=== PATIENT | male | born 1945 | race Caucasian/White ===

== ENCOUNTER → 2016-10-20 10:36 | Outpatient (CLI) | payer MEDICARE, BC ==
[~2016-10-20] VITALS: Ht 170.2 cm; Wt 77.3 kg
--- NOTE | ~2016-10-20 | HEMODYNAMI ---
PATIENT:BETI WEATHERS MEDICAL RECORD: [id number] : 49 LOCATION:DCHARISSE ADMISSION DATE: 10/20/16 Generatedon:10/20/201613:43 Patient name: BETI WEATHERS Patient #: [id number] SSN: [id number] : 1945 Date of study: 10/20/2016 Page: Of Hemodynamic Procedure Report Patient Data Patient Demographics Procedure consent was obtained First Name: BETI Gender: Male Last Name: JASIEL : 1945 Middle Initial: F Age: 71 year(s) Patient #: [id number] Race: SSN: [id number] Additional ID: [id number] Contact details Address: [address] [place] [address] State: [place] City: [place] Zip code: [address] Admission Admission Data Admission Date: 10/20/2016 Admission Time: 10:36 Arrival Date: 10/20/2016 Arrival Time: 13:00 Admit Source: Other Insurance Payor: Medicare Height (in.): 67 BSA: 1.94 (m2) Height (cm.): 170.18 BMI: 28.5 (kg/m2) Weight (lbs.): 182 Weight (kg.): 82.55 Lab Results Lab Result Date: 10/20/2016 Lab Result Time: 0:00 Biochemistry Name Units Result Min Max BUN mg/dl 13 --(--*-)-- 7 18 Creatinine mg/dl 1.1 --(--*-)-- 0.6 1.3 CBC Name Units Result Min Max Hemoglobin g/dl 16.5 --(--*-)-- 13.5 17.5 Procedure Procedure Types Cath Procedure Diagnostic Procedure Cardioversion Procedure Description Procedure Date Procedure Date: 10/20/2016 Procedure Start Time: 13:21 Procedure End Time: 13:24 Procedure Staff Name Function Robert Sheffield MD Performing Physician Brandi Mercado RT Scrub Maki Ford RN Nurse Iglesia Gramajo RT Pre Owned Sales Manager Vamshi Healy RT Monitor Procedure Data Cath Procedure Fluoroscopy Diagnostic fluoroscopy Total fluoroscopy Time: 0 time: 0 min min Diagnostic fluoroscopy Total fluoroscopy dose: 0 dose: 0 mGy mGy Contrast Material Contrast Material Type Amount (ml) Isovue 370 0 Estimated blood loss: 0 ml Procedure Complications No complications Procedure Medications Medication Administration Route Dosage Oxygen NC 2 l/min Refer to Anesthesia Notes for Sedation Medications Hemodynamics Rest BSA: 1.94 (m2) HGB: 16.5 (g/dl) O2 Consumption: Estimated: 234.76 (ml/min) O2 Consumption indexed: Estimated:121.01 (ml/min/m) Heart Rate: 83 (bpm) Snapshots Pre Cath Intra NCS Post Cath Vital Signs Time Heart Resp SPO2 NIBP (mmHg) Rhythm Pain Sedation Rate (ipm) (%) Status Level (bpm) 13:10:46 81 19 96 141/100(115) A-Fib 0 (11) 10(A) , No pain 13:14:58 93 16 96 134/101(109) A-Fib 0 (11) 10(A) , No pain 13:19:06 77 17 96 134/104(114) A-Fib 0 (11) 9(A) , No pain 13:22:25 62 19 98 102/70(88) NSR 0 (11) 6(A) , No pain 13:24:58 72 20 98 103/72(85) NSR 0 (11) 7(A) , No pain 13:29:17 71 16 97 101/76(87) NSR 0 (11) 7(A) , No pain 13:40:00 62 15 98 104/70(87) NSR 0 (11) 9(A) , No pain Medications Time Medication Route Dose Verified Delivered Reason Notes Effectiven ess by by 13:10:07 Oxygen NC 2 Robert Maki Per l/min Yohannes Ford RN physician 13:10:12 Refer to Robert Yooic for Anesthesia Yohannes Sheffield MD sedation Notes for Sedation Medications Procedure Log Time Note 12:48:24 Diagnostic Cath Status : Elective 12:50:45 Iglesia Gramajo RT(R) sent for patient. Start room use. 12:50:47 Time tracking: Regular hours 12:50:51 Plan of Care:Hemodynamics will remain stable., Cardiac rhythm will remain stable., Comfort level will be maintained., Respiratory function will remain adequate., Patient/ family verbilizes understanding of procedure., Procedure tolerated without complication., Recovers from procedure without complications.. 12:51:18 Informed consent obtained and on chart 12:53:38 Admit Source: Other 12:53:42 Patient Height : 170.18 cm 12:53:52 Patient Weight : 82.55 kg 12:53:52 Insurance Payor : Medicare 12:53:58 Arrival Date: 10/20/2016 1:00:00 PM 12:55:17 Quick Combo opened to sterile field. 13:03:22 Patient received from Outpatients to CCL 1 Alert and oriented. Tansferred to table in Supine position. 13:03:24 Warm blankets applied, and trevor hugger turned on for patient comfort. 13:03:25 Correct patient and procedure confirmed by team. 13:03:26 ECG and BP/O2 sat monitors applied to patient. 13:09:40 Vital chart was started 13:09:41 Baseline sample Acquired. 13:09:47 Rhythm: atrial fibrillation 13:09:49 Full Disclosure recording started 13:10:07 Oxygen 2 l/min NC was given by Maki Ford RN; Per physician; 13:10:12 Refer to Anesthesia Notes for Sedation Medications was given by Robert Sheffield MD; for sedation; 13:10:31 H&P Date Dictated: 09/30/2017 Within 30 days and on chart., H&P Addendum completed by physician on day of procedure. (MUST COMPLETE FOR ALL OUTPATIENTS). 13:11:09 Pre-procedure instructions explained to patient. 13:11:09 Pre-op teaching completed and patient verbalized understanding. 13:11:11 Family in waiting room. 13:11:12 Patient NPO since Midnight. 13:11:22 Is the patient allergic to Iodine/contrast media? No. 13:11:23 Was the patient premedicated? No 13:11:23 Is patient on blood thinner?Yes 13:11:27 ACC The patient was administered the following blood thiners within the last 24 hours: Xarelto 13:12:16 Patient diabetic? No. 13:12:20 Previous problem with sedation/anesthesia? No ? 13:12:23 Snore? Yes 13:12:30 Sleep apnea? No 13:13:01 Deviated septum? No 13:13:02 Opens mouth fully? Yes 13:13:03 Sticks out tongue? Yes 13:13:05 Airway obstruction? No ? 13:13:58 Dentures? No ? 13:14:06 Pre procedure: right dorsailis pedis pulse 1+ Palpable, but thready & weak; easily obliterated 13:14:09 Patient pain scale 0/10 ?. 13:15:01 IV patent on arrival in left forearm with 0.9% NaCl at O. 13:15:23 Lab Result : Creatinine 1.1 mg/dl 13:15:23 Lab Result : BUN 13 mg/dl 13:15:23 Lab Result : Hemoglobin 16.5 g/dl 13:15:36 Lab results completed and on chart. 13:15:44 Alarms reviewed by R. N. 13:15:46 Sharps counted by scrub and verified by R.N. 13:15:58 Physician paged 13:17:24 Physician arrived 13:17:25 --------ALL STOP TIME OUT------ 13:17:25 Final Timeout: patient, procedure, and site verified with staff and physician. All members of the team are in agreement. 13:17:30 Physical assessment completed. ASA score P 2 - A patient with mild systemic disease as per Robert Sheffield MD. 13:17:36 Sedation plan: TIVA Propofol 13:17:46 kady medina present and monitoring patient for TIVA. 13:17:56 Quick combo pads placed on patients chest and back. 13:18:41 Defibrillator synced and charged to 200 Joules. 13:21:21 Procedure started. 13:21:33 Shock delivered. 13:21:44 Patient cardioverted to sinus rhythm . 13:22:04 Procedure ended.(Physican Out) 13:22:17 Fluoroscopy time 00.00 minutes. 13:22:20 Fluoroscopy dose: 0 mGy 13:22:20 Flurop Dose total: 0 13:22:26 Contrast amount:Isovue 370 0ml. 13:22:28 Sharps counted by scrub and verified by R.N. 13:22:30 Insertion/operative site no bleeding no hematoma. 13:22:43 Post procedure rhythm: sinus rhythm 13:22:46 Estimated blood loss: 0 ml 13:22:47 Post procedure instruction explained to patient.Patient verbalizes understanding. 13:22:48 Patient needs reinforcement of post procedure teaching. 13:22:53 Procedure and supply charges have been captured, reviewed, submitted and are correct. 13:22:57 Procedure Complication : No complications 13:24:06 Vital chart was stopped 13:24:06 See physician's report for complete and final results. 13:24:12 Report given to Post Procedure Room. 13:24:15 Patient transfered to Post Procedure Room with Stretcher. 13:24:16 Procedure ended. 13:24:16 Full Disclosure recording stopped 13:24:22 End room use (Document Last) Device Usage Item Manufacture Quantity Catalog Hospital Part Current Minimal Lot# / Name Number Charge Number Stock Stock Hugh de# Code Augment [id number] Combo Signature Audit [place] Stage Time Signature Unsigned Intra-Procedure 10/20/2016 Brandi Mercado 1:43:32 PM RT(R) Signatures Monitor : Vamshi Healy RT Signature : Date : Time : [address] [address]
[~2016-10-20 10:36] MED LIST: BETAPACE 80 MG80 MG PO; BUPROPION HCL150 M1 PO; COZAAR50 MG PO; LIPITOR40 MG PO; OMEPRAZOLE40 MG PO; SYNTHROID88 MCG PO; VITAMIN D5000 UNIT PO; XARELTO20 MG PO; ZOVIRAX400 MG PO
[2016-10-20 11:39] LABS: BASOPHILS 0.4 % (0.0-2.0); EOSINOPHILS 3.4 % (0-7); HEMATOCRIT 47.6 % (42.0-54.0); HEMOGLOBIN 16.5 g/dL (13.5-17.5); IMMATURE GRANULOCYTES 0.4 % (0-5); LYMPHOCYTES 22.3 % (15-50); MCH 31.9 pg (26.0-34.0); MCHC 34.7 g/dL (31.0-37.0); MCV 91.9 fL (80.0-100.0); MEAN PLATELET VOLUME 9.6 fL (7.4-10.4); MONOCYTES 8.2 % (2-11); NEUTROPHILS 65.3 % (40-80); PLATELET COUNT 262 10x3/uL (130-400); RBC 5.18 10x6/uL (4.20-6.10); RDW 13.4 % (11.5-14.5); WBC 11.2 10x3/uL (4.8-10.8)
[2016-10-20 11:48] LABS: ANION GAP 11.7 mmol/L (8-16); CALCIUM 9.5 mg/dL (8.5-10.1); CARBON DIOXIDE 30.1 mmol/L (21.0-32.0); CREATININE - SERUM 1.1 mg/dL (0.6-1.3); POTASSIUM - SERUM 4.8 mmol/L (3.5-5.1)
[2016-10-20 12:01] VITALS: BP 139/95; Ht 170.2 cm; Wt 77.3 kg
[2016-10-20 12:47] LABS: INR 2.22 (0.85-1.17); PROTIME 24.7 SECONDS (11.6-15.0)
--- NOTE | 2016-10-20 14:00 | NUR ---
1400 NO DISTRESS NOTED. VSS WITH HR SR 70 CHEST PAIN IS DENIED. WILL MONITOR 1430 CHEST PAIN DENIED WITH NO CHANGE IN RHYTHM. REMAINS SINUS AT 69 REPOSITIONED TO SITTING WITH HOB UP 45 DEGREES FOR SANDWICH AND SODA
--- NOTE | 2016-10-20 14:54 | NUR ---
SITTING WITH HOB UP 45 DEGREES TALKING TO AT SIDE VSS WITH NO CHANGE IN ASSESSMENT WILL MONITOR
--- NOTE | 2016-10-20 15:02 | NUR ---
PIV REMOVED FROM R/ARM WITH DRESSING APPLIED VSS WITH CHEST PAIN DENIED PATIENT UP TO GET DRESSED FOR DISCHARGE HOME WILL MONITOR
--- NOTE | 2016-10-20 15:07 | NUR ---
VERBAL AND WRITTEN DISCHARGE ORDERS GONE OVER WITH PATIENT AND . BOTH VERBALIZE UNDERSTANDING OF INSTRUCTIONS. LEFT VIA WC TO [place] FOR TO DRIVE HOME CHEST PAIN IS DENIED WITH HR NSR RATE OF 70
--- NOTE | 2016-11-03 15:45 | OP ---
PATIENT NAME: BETI WEATHERS MEDICAL RECORD: [id number] :49 LOCATION:D.CAT ADMISSION DATE: SURGEON: MARIAAN ALCARAZ M.D. DATE OF OPERATION: 10/20/2016 Cardioversion REFERRING PHYSICIAN: Dr. Nikolas Nicole. PROCEDURES PERFORMED: Cardioversion. INDICATION: This 71-year-old gentleman who presents with persistent atrial fibrillation. DESCRIPTION: The patient was brought to the cath lab tech. It was confirmed he is in atrial fibrillation. He has been anticoagulated. He received sedation in the form of propofol. Once the patient was adequately sedated, he received 1 discharge of 200 joules. This resulted in methodist of sinus rhythm. He tolerated the procedure well without any complication. IMPRESSION: Successful cardioversion with methodist of sinus rhythm. TRANSINT:[id number] Voice Confirmation ID: [id number] DOCUMENT ID: [id number] MARIANA ALCARAZ M.D. at 1545 CC: [id number] DICTATION DATE: 10/20/16 1325 TABLE HAND: 10/20/16 1401 DEP CLI 10/20/[address] [address]
== END | disposition home or self-care (01) ==
LOC: D.CATH 09:00
PROVIDERS: Internal Medicine Cardiovascular Disease
DX: I48.1 Persistent atrial fibrillation (principal)

== ENCOUNTER → 2018-03-22 07:27 | Outpatient (CLI) | payer MEDICARE, BC ==
[2016-10-20 12:01] VITALS: BMI 26.7
== END | disposition home or self-care (01) ==
LOC: D.US 07:27
DX: R10.9 Unspecified abdominal pain (principal)

== ENCOUNTER → 2019-01-12 10:17 | Outpatient (CLI) | payer MEDICARE, BC ==
[2016-10-20 12:01] VITALS: BMI 26.7
== END | disposition home or self-care (01) ==
LOC: D.HCCARDIO 10:17
PROVIDERS: ATTEND Internal Medicine Cardiovascular Disease
DX: I34.0 Nonrheumatic mitral (valve) insufficiency (principal)

== ENCOUNTER → 2020-01-17 11:30 | Outpatient (CLI) | payer MEDICARE, BC ==
[2016-10-20 12:01] VITALS: BMI 26.7
== END | disposition home or self-care (01) ==
LOC: D.HCCECHO 11:30
PROVIDERS: ATTEND Internal Medicine Cardiovascular Disease
DX: I10 Essential (primary) hypertension (principal)

== ENCOUNTER 2020-03-14 11:42 | Outpatient (CLI) | payer MEDICARE, BC ==
[~2020-03-14] VITALS: Ht 170.2 cm; Wt 79.9 kg
--- NOTE | ~2020-03-14 | HEMODYNAMI ---
PATIENT:BETI WEATHERS MEDICAL RECORD: [id number] : 49 LOCATION:VI ADMISSION DATE: 03/14/20 Generatedon:03/14/202014:05 Patient name: BETI WEATHERS Patient #: [id number] SSN: [id number] : 1945 Date of study: 03/14/2020 Page: Of Hemodynamic Procedure Report Patient Data Patient Demographics Procedure consent was obtained First Name: BETI Gender: Male Last Name: JASIEL : 1945 Middle Initial: F Age: 74 year(s) Patient #: [id number] Race: SSN: [id number] Additional ID: [id number] Contact details Address: [address] [place] [address] State: [place] City: [place] Zip code: [address] Past Medical History Allergies: No known allergies Admission Admission Data Admission Date: 03/14/2020 Admission Time: 11:42 Height (in.): 66.93 BSA: 1.92 (m2) Height (cm.): 170 BMI: 27.68 (kg/m2) Weight (lbs.): 176.37 Weight (kg.): 80 Lab Results Lab Result Date: 03/14/2020 Lab Result Time: 0:00 Biochemistry Name Units Result Min Max BUN mg/dl 19 --(----)*- 7 18 Creatinine mg/dl 1.3 --(---*)-- 0.6 1.3 CBC Name Units Result Min Max Hematocrit % 49.9 --(--*-)-- 42 54 Hemoglobin g/dl 17.3 --(---*)-- 13.5 17.5 Procedure Procedure Types Cath Procedure Diagnostic Procedure Cardioversion External Procedure Description Procedure Date Procedure Date: 03/14/2020 Procedure Start Time: 13:38 Procedure End Time: 14:01 Procedure Staff Name Function Robert Sheffield MD Performing Physician Nichole Franco RT Monitor Ed Tanner RN Nurse Celso Phillips MD Additional personnel Procedure Data Cath Procedure Fluoroscopy Diagnostic fluoroscopy Total fluoroscopy Time: 0 time: 0 min min Diagnostic fluoroscopy Total fluoroscopy dose: 0 dose: 0 mGy mGy Estimated blood loss: 5 ml Procedure Complications No complications Hemodynamics Rest BSA: 1.92 (m2) HGB: 17.3 (g/dl) O2 Consumption: Estimated: 230.68 (ml/min) O2 Consumption indexed: Estimated:120.15 (ml/min/m) Heart Rate: 83 (bpm) Snapshots Pre Cath Intra NCS Post Cath Vital Signs Time Heart Resp SPO2 etCO2 NIBP (mmHg) Rhythm Pain Sedation Rate (ipm) (%) (mmHg) Status Level (bpm) 13:22:01 81 19 95 0 139/93(109) NSR 0 (11) 10(A) , No pain 13:26:09 89 17 96 0 127/90(99) NSR 0 (11) 10(A) , No pain 13:30:15 86 17 95 0 127/84(123) NSR 0 (11) 10(A) , No pain 13:34:17 80 19 96 0 92/68(79) NSR 0 (11) 10(A) , No pain 13:38:51 78 17 98 0 119/92(107) NSR 0 (11) 10(A) , No pain 13:42:57 69 18 96 0 125/82(91) NSR 0 (11) 10(A) , No pain 13:47:09 66 17 97 0 101/67(74) NSR 0 (11) 10(A) , No pain 13:51:13 66 16 97 0 105/67(76) NSR 0 (11) 10(A) , No pain 13:55:14 62 16 98 0 99/74(86) NSR 0 (11) 10(A) , No pain 13:59:18 64 16 98 0 105/65(84) NSR 0 (11) 10(A) , No pain Procedure Log Time Note 12:51:44 Procedure Status Cardioversion. 12:51:50 Plan of Care:Hemodynamics will remain stable., Cardiac rhythm will remain stable., Comfort level will be maintained., Respiratory function will remain adequate., Patient/ family verbilizes understanding of procedure., Procedure tolerated without complication., Recovers from procedure without complications.. 12:51:52 Time tracking: Regular hours (M-F 7:00 - 5:00) 12:52:23 H&P Date Dictated: 02/28/2020 Within 30 days and on chart., H&P Addendum completed by physician on day of procedure. (MUST COMPLETE FOR ALL OUTPATIENTS). 12:52:32 Patient allergic to No known allergies 13:03: Lab Result : BUN 19 mg/dl 13:: Lab Result : Creatinine 1.3 mg/dl 13:03: Lab Result : Hemoglobin 17.3 g/dl 13:: Lab Result : Hematocrit 49.9 % 13:10:25 Nichole Franco RT(R) sent for patient. Start room use. 13:20:54 Patient arrived from Pre/Post Procedure Room to CCL 2. Patient remains on bed/stretcher for procedure. 13:20:56 Signed procedure consent form obtained from patient. 13:20:57 Warm blankets applied, and trevor hugger turned on for patient comfort. 13:20:57 Correct patient and procedure confirmed by team. 13:20:58 ECG and BP/O2 sat monitors applied to patient. 13:20:59 Vital chart was started 13:21:01 Baseline sample Acquired. 13:21:05 Rhythm: atrial fibrillation 13:21:06 Full Disclosure recording started 13:21:07 Pre-procedure instructions explained to patient. 13:21:07 Pre-op teaching completed and patient verbalized understanding. 13:21:09 Family unavailable. 13:21:10 Patient NPO since Midnight. 13:21:12 Is the patient allergic to Iodine/contrast media? No. 13:21:13 Is patient on blood thinner?Yes 13:21:17 ACC The patient was administered the following blood thiners within the last 24 hours: Xarelto 13:21:18 Patient diabetic? No. 13:21:20 Previous problem with sedation/anesthesia? No ? 13:21:22 Snore? Yes 13:21:22 Sleep apnea? Yes 13:21:23 Deviated septum? No 13:21:24 Opens mouth fully? Yes 13:21:25 Sticks out tongue? Yes 13:21:26 Airway obstruction? No ? 13:21:29 Dentures? No ? 13:21:35 IV patent on arrival in left hand with 0.9% NaCl at [facility]. 13:21:37 Lab results completed and on chart. 13:21:42 Alarms reviewed by R. N. 13:21:43 Sharps counted by scrub and verified by R.N. 13:22:49 Patient Weight : 176.37 lbs 13:22:53 Patient Height : 66.93 inches 13:33:50 Celso Phillips MD present and monitoring patient for TIVA. 13:34:52 Quick Combo opened to sterile field. 13:37:34 --------ALL STOP TIME OUT------ 13:37:35 Final Timeout: patient, procedure, and site verified with staff and physician. All members of the team are in agreement. 13:37:39 Physical assessment completed. ASA score P 2 - A patient with mild systemic disease as per Robert Sheffield MD. 13:37:42 Sedation plan: TIVA Medication:Propofol 13:38:11 Procedure started. 13:38:14 ------Cardioversion------ 13:40:35 Quick combo pads placed on patients chest and back. 13:40:37 Defibrillator synced and charged to 200 Joules. 13:40:49 Shock delivered. 13:41:00 Patient cardioverted to sinus rhythm . 13:41:51 Procedure ended.(Physican Out) 13:42:51 Fluoroscopy time 00.00 minutes. 13:42:53 Fluoroscopy dose: 0 mGy 13:42:53 Flurop Dose total: 0 13:42:57 Post-procedure physical assessment completed. ASA score P 2 - A patient with mild systemic disease as per Robert Sheffield MD. 13:43:03 Post procedure rhythm: sinus rhythm 13:43:06 Estimated blood loss: 5 ml 13:43:08 Post procedure instruction explained to patient.Patient verbalizes understanding. 13:43:08 Patient needs reinforcement of post procedure teaching. 13:43:27 Procedure and supply charges have been captured, reviewed, submitted and are correct. 13:43:43 Procedure Complication : No complications 13:51:23 Operative report dictated upon procedure completion. 13:51:23 See physician's report for complete and final results. 13:51:25 Report given to Pre/Post Procedure Room. 13:51:31 Patient transfered to Pre/Post Procedure Room with Bed. 14:01:52 Vital chart was stopped 14:01:55 Procedure ended. 14:01:55 Full Disclosure recording stopped 14:02:01 End room use (Document Last) 14:04:27 End room use (Document Last) 14:05:08 End room use (Document Last) Device Usage Item Manufacture Quantity Catalog Hospital Part Current Minimal Lot# / Name Number Charge Number Ron duarte# Code [facility] 1 [id number] Combo Signature Audit [place] Stage Time Signature Unsigned Intra-Procedure 03/14/2020 Nichole Franco 2:04:27 PM RT(R) Intra-Procedure 03/14/2020 Ed Tanner 2:05:08 PM RN Intra-Procedure 03/14/2020 Robert Sheffield MD 2:05:40 PM Signatures Performing Physician : Signature : Robert Sheffield MD Date : Time : Monitor : Nichole Franco Signature : RT Date : Time : Nurse : Ed Tanner RN Signature : Date : Time : [address] [place] [address]
[~2020-03-14 11:42] MED LIST changes: -ZOVIRAX400 MG PO; +ZOVIRAX800 MG PO
[2020-03-14 12:41] VITALS: BP 129/89; Ht 170.2 cm; Wt 79.9 kg
[2020-03-14 12:44] LABS: BASOPHILS 0.2 % (0-2); EOSINOPHILS 1.9 % (0-7); HEMATOCRIT 49.9 % (42.0-54.0); HEMOGLOBIN 17.3 g/dL (13.5-17.5); IMMATURE GRANULOCYTES 0.4 % (0-5); MCH 31.1 pg (26.0-34.0); MCHC 34.7 g/dL (31.0-37.0); MCV 89.6 fL (80.0-100.0); MEAN PLATELET VOLUME 8.7 fL (7.4-10.4); MONOCYTES 8.4 % (2-11); NEUTROPHILS 67.1 % (40-80); PLATELET COUNT 261 10x3/uL (130-400); RBC 5.57 10x6/uL (4.20-6.10); RDW 12.9 % (11.5-14.5); WBC 9.6 10x3/uL (4.8-10.8)
[2020-03-14 12:50] LABS: ANION GAP 12.3 mmol/L (8-16); CALCIUM 8.9 mg/dL (8.5-10.1); CARBON DIOXIDE 24.5 mmol/L (21.0-32.0); CREATININE - SERUM 1.3 mg/dL (0.6-1.3); POTASSIUM - SERUM 4.8 mmol/L (3.5-5.1)
[2020-03-14 12:55] LABS: INR 2.12 (0.85-1.17); PROTIME 23.4 SECONDS (11.6-15.0)
--- NOTE | 2020-03-14 14:15 | NUR ---
PT REC'D TO ROOM 2 VIA STRETCHER FROM FUNERAL ATTENDANT. MONITORS ESTAB. PT ALERT/ORIENTED. SEE DIVING INSTRUCTOR. ALARMS ON AND C/L IN REACH.
--- NOTE | 2020-03-14 14:30 | NUR ---
VSS, CM - SR, HR 69. SANDWICH TRAY PROVIDED. ALARMS ON AND C/L IN REACH. MESSAGE LEFT WITH SALTY CORRIGAN D/C AT 1500
--- NOTE | 2020-03-14 14:45 | NUR ---
VSS, CM NSR, HR 62. STILL UNABLE TO HOSPICE NURSE PRACTITIONER FOR [facility] HOME.
--- NOTE | 2020-03-14 15:00 | NUR ---
FEDERICO, CM - NSR, NOTIFIED SHEKHAR THAT PT CAN D/C HOME.
--- NOTE | 2020-03-14 15:30 | NUR ---
VSS. CM - NSR. PIV D/C'D INTACT, DSG APPLIED. PT UP TO GET DRESSED AND GO TO THE BATHROOM INDEPENDENTLY.
--- NOTE | 2020-03-14 15:44 | NUR ---
ALL DISCHARGE INSTRUCTIONS REVIEWED WITH PT - INCLUDING RESTRICTIONS, MEDS AND F/U APPT.
--- NOTE | 2020-03-14 15:50 | NUR ---
PT D/C'D TO PRIVATE VEHICLE WITH ALL PAPERWORK AND BELONGINGS.
== END 2020-03-14 15:50 | disposition home or self-care (01) ==
LOC: D.CATH 11:42
PROVIDERS: ATTEND Internal Medicine Cardiovascular Disease
DX: I48.91 Unspecified atrial fibrillation (principal); I10 Essential (primary) hypertension; R53.81 Other malaise

== ENCOUNTER → 2020-07-16 08:10 | Outpatient (CLI) | payer MEDICARE, BC ==
[2020-03-14 12:41] VITALS: BMI 27.6
== END | disposition home or self-care (01) ==
LOC: D.HCCARDIO 08:10
PROVIDERS: ATTEND Internal Medicine Cardiovascular Disease
DX: I48.91 Unspecified atrial fibrillation (principal)